=== PATIENT | female | born 1935 | race Caucasian/White ===

== ENCOUNTER 2016-10-31 07:45 | Day surgery (SDC) | payer MEDICARE, BC ==
[2016-10-31] MEDS ORDERED: LACTATED RINGERS 1,000 ML IV ONE (08:13)
[2016-10-31] MEDS ORDERED: MIDAZOLAM 2 MG/2 ML VIAL IVP ONE (09:08)
[2016-10-31] MEDS ORDERED: fentaNYL 100 MCG/2 ML VIAL IVP ONE (09:08)
[2016-10-31] MEDS ORDERED: LIDO GARGLE 30 ML BOTTLE PO ONE (09:24)
[2016-10-31] MEDS ORDERED: BENZOCAINE/TETRACAINE/BUTAMBEN SPRAY 56 GM TOP ONE (09:26)
== END 2016-10-31 07:46 | disposition home or self-care (01) ==
PROC: 0DB48ZX Excision of Esophagogastric Junction, Via Natural or Artificial Opening Endoscopic, Diagnostic (ICD-10-PCS; 2016-10-31)
PROC: 0DB68ZX Excision of Stomach, Via Natural or Artificial Opening Endoscopic, Diagnostic (ICD-10-PCS; principal; 2016-10-31 09:00)
DX: K92.1 Melena (principal); R10.13 Epigastric pain; K25.9 Gastric ulcer, unspecified as acute or chronic, without hemorrhage or perforation; K44.9 Diaphragmatic hernia without obstruction or gangrene; K20.9 Esophagitis, unspecified; I10 Essential (primary) hypertension; E11.9 Type 2 diabetes mellitus without complications; F41.9 Anxiety disorder, unspecified; Z87.891 Personal history of nicotine dependence
CPT/HCPCS: 43239; 87081; A9270; J7120

== ENCOUNTER 2017-06-29 15:32 | Outpatient (CLI) | payer MEDICARE | END 2017-06-29 15:33 | disposition EMS.NT | LOC: EMS 15:32 | PROVIDERS: ATTEND Surgery | DX: R41.82 Altered mental status, unspecified (principal) ==

== ENCOUNTER 2017-07-06 09:13 | Outpatient (CLI) | payer MEDICARE | END 2017-07-06 09:14 | disposition critical access hospital (66) | LOC: EMS 09:13 | PROVIDERS: ATTEND Surgery | DX: S49.92XA Unspecified injury of left shoulder and upper arm, initial encounter (principal); S09.93XA Unspecified injury of face, initial encounter; W18.30XA Fall on same level, unspecified, initial encounter; Y92.099 Unspecified place in other non-institutional residence as the place of occurrence of the external cause | CPT/HCPCS: A0425; A0427 ==

== ENCOUNTER 2017-07-06 09:30 | Inpatient (IN) | payer MEDICARE ==
[2017-07-06] MEDS ORDERED: ONDANSETRON 4 MG/2 ML VIAL ONE (09:39)
[2017-07-06] MEDS ORDERED: SODIUM CHLORIDE 0.9% 1,000 ML IV ONE ×3 (09:48→17:53)
[2017-07-06] MEDS ORDERED: MORPHINE 2 MG/ML SYRINGE IVP STA ×4 (09:48→14:06)
[2017-07-06] MEDS ORDERED: TETANUS/DIPHTHERIA/PERTUSSIS 0.5 ML SYRINGE IM ONE ×2 (09:49→10:23)
[2017-07-06] MEDS ORDERED: ceFAZolin 1 GM in SODIUM CHLORIDE 0.9% MINIBAG 100 ML IV STA (09:49)
--- NOTE | 2017-07-06 09:53 | ED Physician Documentation ---
History of Present Illness - Stated complaint Stated Complaint: GLF - Chief complaint Chief Complaint: Trauma Francis - Additonal information Additional information: hc from pt 82 female lives independent at [facility] found down on floor this AM facial and head injuries, RUE deformity with overlying puncture wound, low BP, but awake and answering questions per EMS she tripped over her O2 cord fell and could not get back up no blood thinners she arrives vomiting dark blackish vomit Review of Systems GI: reports: Nausea, Vomiting Skin: reports: Laceration (s) Musculoskeletal: reports: Extremity pain (and deformity), Joint pain (knees). denies: Neck pain (but HI and distracting injury) Neurologic: reports: Headache, Head injury Endocrine: denies: Easy bruising / bleeding Immunocompromised: denies: Immunocompromised PD PAST MEDICAL HISTORY - Past Medical History Cardiovascular: High cholesterol Respiratory: COPD Endocrine/Autoimmune: Type 2 diabetes GI: GERD, Other : Frequency HEENT: None Psych: None Musculoskeletal: Osteoarthritis, Fatigue, Chronic back pain Derm: None - Past Surgical History Past Surgical History: Yes General: Cholecystectomy, Appendectomy, Colonoscopy, EGD - Present Medications Home Medications: Ambulatory Orders Medication Instructions Recorded Confirmed Naproxen 500 mg PO BID PRN 03/24/14 07/06/17 Losartan/Hydrochlorothiazide 1 tab PO DAILY 10/28/16 07/06/17 [Losartan-Hctz 100-25 mg Tab] Multivitamin [Multivitamins] 1 tab PO DAILY 10/28/16 07/06/17 Simvastatin 20 mg PO DAILY 10/28/16 07/06/17 Acetaminophen with Codeine 1 each PO Q6H PRN 07/06/17 07/06/17 [Acetaminophen-Cod #3 Tablet] Meloxicam [Meloxicam] 15 mg PO DAILY 07/06/17 07/06/17 Nitrofurantoin [Macrobid] 100 mg PO BID 07/06/17 07/06/17 - Allergies Allergies/Adverse Reactions: Allergies Allergy/AdvReac Type Severity Reaction Status Date / Time No Known Drug Allergies Allergy Verified 03/24/14 11:08 - Social History Does the pt smoke?: No Smoking Status: Never smoker Does the pt drink ETOH?: No Does the pt have substance abuse?: No - Immunizations Immunizations are current?: Yes - POLST Patient has POLST: No PD ED PE NORMAL - Vitals Vital signs reviewed: Yes (hypoxic, unable to get a BP) - General General: Alert and oriented X 3 (name and place, confused re day) - HEENT HEENT: No: Atraumatic (sig bruising and swelling to L zoroastrianism and nose and upper lip, no open lacs, dried blood at nares and outside L ear) - Neck Neck: No bony TTP (but clearly at risk and has distracting injuries so collared and will image) - Cardiac Cardiac: RRR - Respiratory Respiratory: No respiratory distress, Other (shallow) - Abdomen Abdomen: Non tender, Other (vomiting black vomit) - Derm Derm: Other (pale) - Extremities Extremities: Other (sig bruising and swelling with intability and deformity to TUE humerus with overlying puncture wound that is not bleeding now, pelvis stable, thanh knees swollen L>R with bruising, too swollen to assess for laxity, L great toenail is avulsed, pulses motor and sens to all 4 ext) Results - Vitals Vitals: Vital Signs - 24 hr 07/06/17 07/06/17 07/06/17 09:32 10:01 10:59 Heart Rate 106 H 101 H 102 H Respiratory 22 16 21 Rate Blood Pressure 124/56 L 124/56 L O2 Saturation 74 L 94 95 07/06/17 07/06/17 07/06/17 11:30 12:10 12:18 Heart Rate 97 93 Respiratory 18 19 Rate Blood Pressure 114/51 L 116/78 O2 Saturation 95 94 98 07/06/17 07/06/17 12:39 13:45 Heart Rate 96 Respiratory 18 Rate Blood Pressure 106/44 L O2 Saturation 100 98 Oxygen O2 Source Oxymizer Oxygen Flow Rate 2 - EKG (time done) 1120 Rate: Rate (enter#) (97) Rhythm: NSR Intervals: Prolonged PA Ischemia: No: Normal ST segments (coving ant leads could be ischemic) Compare to prior EKG: Other (EKG ..16) - Labs Labs: Laboratory Tests 07/06/17 07/06/17 07/06/17 10:35 10:35 10:35 WBC 15.5 H RBC 3.80 L Hgb 11.1 L Hct 33.5 L MCV 88.3 MCH 29.3 MCHC 33.2 RDW 13.4 Plt Count 161 MPV 8.7 Neut # 13.5 H Lymph # 1.0 L Cross # 1.0 Eos # 0.0 Baso # 0.1 Absolute Nucleated RBC 0.02 Nucleated RBC % 0.1 Manual Slide Review Indicated Platelet Morphology NORMAL APPEARANCE PT 12.7 H INR 1.1 APTT 14.2 L Sodium 136 Potassium 3.0 L Chloride 96 L Carbon Dioxide 24 Anion Gap 16.0 H BUN 37 H Creatinine 1.6 H Estimated GFR (MDRD) 31 L Glucose 170 H Calcium 11.5 H Total Bilirubin 1.0 AST 54 H ALT 24 Alkaline Phosphatase 125 H Total Creatine Kinase 752 H CK-MB (CK-2) Troponin I Total Protein 6.2 L Albumin 3.5 Globulin 2.7 Albumin/Globulin Ratio 1.3 Lipase 34 Urine Color Urine Clarity Urine pH Ur Specific [place] Urine Protein Urine Glucose (UA) Urine Ketones Urine Occult Blood Urine Nitrite Urine Bilirubin Urine Urobilinogen Ur Leukocyte Esterase Ur Microscopic Review Urine Culture Comments 07/06/17 07/06/17 07/06/17 10:35 12:00 14:10 WBC RBC Hgb Hct MCV MCH MCHC RDW Plt Count MPV Neut # Lymph # Cross # Eos # Baso # Absolute Nucleated RBC Nucleated RBC % Manual Slide Review Platelet Morphology PT INR APTT Sodium Potassium Chloride Carbon Dioxide Anion Gap BUN Creatinine Estimated GFR (MDRD) Glucose Calcium Total Bilirubin AST ALT Alkaline Phosphatase Total Creatine Kinase CK-MB (CK-2) 75.3 H Troponin I 0.06 0.08 Total Protein Albumin Globulin Albumin/Globulin Ratio Lipase Urine Color DARK YELLOW Urine Clarity CLEAR Urine pH 5.5 Ur Specific [place] >=1.030 H Urine Protein NEGATIVE Urine Glucose (UA) NEGATIVE Urine Ketones TRACE Urine Occult Blood TRACE-LYSE Urine Nitrite NEGATIVE Urine Bilirubin NEGATIVE Urine Urobilinogen 0.2 (NORMAL) Ur Leukocyte Esterase NEGATIVE Ur Microscopic Review NOT INDICATED Urine Culture Comments NOT INDICATED - Rads (name of study) CTH Radiology: See rad report (no ICH, lobulated cystic appearing lesions R hippocampus and T2 hypodense ill def lesions R cerebellum, rec brain MRI with and without, conside metastatic dz) CT facial Radiology: See rad report (multiple lytic lesions C2C3 with mottle appearance and cortical disruption C3 spinous process concern for metastatic, no facial bone fx seen) CTCS Radiology: Other (no c spine fx, multiple lytic and bony destructive lesions in the cervical spine, no pathalogic fx, lytic destruction of the medial aspect of the L clavicle with pathg fx and ant displacement, infiltrative ST mass T1 vertebral body extends into the neural foramina thanh and spinal canal posterior, rec MRI, concern for metastatic dz) CXR Radiology: See rad report (opacity R inf hemithorax may be pleural or pulm based , not typical for acute injury, infection unlikely, ddx includes neoplasm) R humerus Radiology: See rad report (displaced humeral shaft fx likely pathologic - no air near bone, per Dr Wadsworth not an open fx, aggressive lesions in scapula suggests osseous mets) pelvis Radiology: See rad report (no acute) thanh knees Radiology: See rad report (no acute) Procedures - Splint (location) RUE Splint applied by: Tech Type of splint: Other (coaptation splint per ortho) Other: Neurovascular intact, Sling provided. No: Patient tolerated well ( medicated with morphine in order to splint) PD MEDICAL DECISION MAKING - ED course ED course: called PMD office for info PMD not avail but they faxed records no POLST Pmhx AMS, arthritis knees, L shoulder pain, PUD, melena, urinary incont, hyperlipid, DM, HTN, COPD, heart murmur, cataracts, eczema, asthma, cardiomegaly no prior cancer dx no old EKG 82 f found down per EMS believed to have tripped and fallen but not certain extensive bruising to head and face but no ICH or facial neck fx does have a humerus fx (pathalogic) with overlying puncture but per Dr Wadsworth ortho not an open fx, co-aptation splint placed per his instruction also imaging reveals extensive metastatic dz of likely lung origin mild rhabdo renal insuff dehydrated hypoxic req suppl oxygen and may have aspirated, 2st CXR does not show infiltrate but would rpt vomiting bloody emesis - given pepcid - eventually got med list from PD office, appears pt started on mobic 3 days ago, could be related to bloody emesis and EKG suggests acute ischemia but 1st trop neg and pt has many other confounding issues, has been down most of the night, will rpt trop and determine course of action based on results now that know pt does not have a ICH or spine fx etc - 1430 still waiting on rpt trop but able to get an old EKG faxed from clinic pt very uncomfortable and restless, writhing, says hr arm still hurts, gave morphine 2 then 4 still tachy and uncomfortable and upset, seemed more agitated after I told her about possibly having cancer, so alos gave 1 mg ativan whcih calmed pt but also led to low O2 sat (increased oxygen) and hypotension to the 80s (gave fluid) would not rec any more benzos for this pt I updated her daughter [place]von [place] and states her other daughter Susana who lives locally should be here this evening Departure - Departure Disposition: [facility] DC/Xfer Clinical Impression: Renal insufficiency, Hypoxia, Abnormal EKG, Metastatic cancer Fall Qualifiers: Encounter type: initial encounter Qualified Code(s): W19.XXXA - Unspecified fall, initial encounter Head injury Qualifiers: Encounter type: initial encounter Qualified Code(s): S09.90XA - Unspecified injury of head, initial encounter Humerus fracture Qualifiers: Encounter type: initial encounter Humerus Location: shaft Fracture type: closed Fracture morphology: unspecified fracture morphology Laterality: right Qualified Code(s): S42.301A - Unspecified fracture of shaft of humerus, right arm, initial encounter for closed fracture GI bleed Qualifiers: GI bleed type/associated pathology: unspecified gastrointestinal hemorrhage type Qualified Code(s): K92.2 - Gastrointestinal hemorrhage, unspecified Condition: Serious Discharge Date/Time: 07/06/17 16:00
[2017-07-06] MEDS ORDERED: ONDANSETRON 4 MG/2 ML VIAL IVP STA (10:16)
[2017-07-06] MEDS ORDERED: MORPHINE 2 MG/ML SYRINGE ONE ×4 (10:23→14:02)
[2017-07-06] MEDS ORDERED: ceFAZolin 1 GM VIAL ONE (10:23)
[2017-07-06] MEDS ORDERED: SODIUM CHLORIDE FLUSH 0.9% 10 ML SYRINGE IVP ONE (10:23)
[2017-07-06 10:52] LABS: BASOPHILS # (AUTO) 0.1 10^3/uL (0.0-0.1); BASOPHILS % (AUTO) 0.4 %; EOSINOPHILS % (AUTO) 0.1 %; HCT - HEMATOCRIT 33.5 % (37.0-47.0); HGB - HEMOGLOBIN 11.1 g/dL (12.0-16.0); LYMPHOCYTES % (AUTO) 6.4 %; MEAN CORPUSCULAR HEMOGLOBIN 29.3 pg (27.0-31.0); MEAN CORPUSCULAR HGB CONC 33.2 g/dL (32.0-36.0); MEAN CORPUSCULAR VOLUME 88.3 fL (81.0-99.0); MEAN PLATELET VOLUME 8.7 fL (7.9-10.8); MONOCYTES % (AUTO) 6.5 %; NEUTROPHILS # (AUTO) 13.5 10^3/uL (1.5-6.6); NEUTROPHILS % (AUTO) 86.6 %; NUCLEATED RED BLOOD CELLS AUTO 0.1 /100WBC; RED CELL DISTRIBUTION WIDTH 13.4 % (12.0-15.0); UNCORRECTED WHITE BLOOD COUNT 15.5 x10^3/uL; WHITE BLOOD COUNT 15.5 x10^3/uL (4.8-10.8)
[2017-07-06 10:53] LABS: INR 1.1 (0.8-1.2); PT - PROTHROMBIN TIME 12.7 secs (9.9-12.6)
[2017-07-06 11:00] LABS: PARTIAL THROMBOPLASTIN TIME 14.2 secs (24.9-33.3)
[2017-07-06 11:03] LABS: TROPONIN I 0.06 ng/mL (<0.49)
[2017-07-06 11:05] LABS: CREATINE KINASE MB 75.3 ng/mL (0.6-6.3)
--- NOTE | 2017-07-06 11:10 | CT Report ---
EXAM: CT HEAD EXAM DATE: 07/06/2017 10:51 AM. CLINICAL HISTORY: Fall PLUNKETT. COMPARISON: None. TECHNIQUE: Multiaxial CT images were obtained from the foramen magnum to the vertex. IV contrast: Non e. Reformats: Coronal. In accordance with CT protocol optimization, one or more of the following dose reduction techniques w ere utilized for this exam: automated exposure control, adjustment of mA and/or KV based on patient s ize, or use of iterative reconstructive technique. FINDINGS: Parenchyma: There is a lobulated cystic structure measuring 2.8 x 2.9 cm in the right hippocampus. No intracranial hemorrhage or midline shift. Hypoattenuating ill-defined structures in the right cerebe llum measuring 4.0 x 2.0 anteriorly and 1.8 x 1.2 cm posteriorly. Extraaxial Spaces: Normal for age. No subdural or epidural collections identified. Ventricles: Normal in size and position. Sinuses: Imaged paranasal sinuses, orbits, and mastoids show no significant abnormality. Bones: No evidence of fracture or calvarial defect. Other: None. IMPRESSION: 1. No intracranial hemorrhage or midline shift. 2. There is a lobulated cystic-appearing lesion in the right hippocampus and T2 hypodense ill-defined lesions in the right cerebellum, as described above. These are incompletely assessed on this examina tion and a brain MRI with and without contrast should be considered for further evaluation. Metastati c disease cannot be excluded. [facility] Referring Provider Line: [phone] SITE ID: [id number]
[2017-07-06 11:12] LABS: PLATELET MORPHOLOGY NORMAL APPEARANCE (NORMAL)
[2017-07-06 11:24] LABS: CALCIUM 11.5 mg/dL (8.5-10.3)
[2017-07-06 11:25] LABS: TOTAL PROTEIN 6.2 g/dL (6.7-8.2)
--- NOTE | 2017-07-06 11:28 | CT Report ---
EXAM: CT CERVICAL SPINE WITHOUT CONTRAST DATE: 07/06/2017 10:51 AM HISTORY: Fall HI distracting injuries cant clear. COMPARISONS: Head CT dated 07/06/2017. TECHNIQUE: Thin-section axial images were acquired of the cervical spine without contrast. Post-proce ssing: Coronal and sagittal reformats. Other: None. In accordance with CT protocol optimization, one or more of the following dose reduction techniques w ere utilized for this exam: automated exposure control, adjustment of mA and/or KV based on patient s ize, or use of iterative reconstructive technique. FINDINGS: Alignment: The patient's head is rotated to the right in relation to the cervical spine. No listhesis in the AP dimension. Bones: Multiple lytic lesions with bony destruction throughout the cervical spine including a mottled appearance of the C7 and T1 vertebral bodies extending into the spinous process at T1. Mottled appea nikki of the T2 and T3 vertebral bodies. There is lytic destruction of the medial aspect of the left clavicle with past neurologic fracture and anterior displacement of the lateral fracture fragment. Interspace Levels/Facets: C1-C2: Unremarkable. C2-C3: Unremarkable. C3-C4: Unremarkable. C4-C5: Unremarkable. C5-C6: Severe neural foraminal narrowing on the right. C6-C7: Unremarkable. C7-T1: Unremarkable. Musculature: Normal. No fatty atrophy. Other: The paravertebral and prevertebral soft tissues are normal. The lung apices are clear. IMPRESSION: 1. No cervical spine fracture or listhesis. 2. Multiple lytic and bony destructive lesions in the cervical spine most significant at C7 and T1. N o pathologic fracture of the cervical spine. There is lytic destruction of the medial aspect of the l eft clavicle with pathologic fracture and anterior displacement of the lateral fracture fragment by o ne shaft width. Infiltrative soft tissue mass in the T1 vertebral body extends into the neural forami na bilaterally and spinal canal posteriorly. A cervical spine MRI may be of clinical benefit to furth er characterize this finding. Findings are concerning for metastatic disease. 3. Please see separate head CT report from today for additional findings in the brain. [facility] Referring Provider Line: [phone] SITE ID: [id number]
--- NOTE | 2017-07-06 11:31 | CT Preliminary Report ---
Exam: CT Facial Bones W/O IMPRESSION: 1. Multiple lytic lesions in the C2 and C3 vertebral bodies with mottled appearance and cortical disr uption of the C3 spinous process are concerning for metastatic disease. 2. No facial bone fracture or facial bone lesions identified. 3. Please see separate head CT report for intracranial findings. [facility] SITE ID: [id number]
--- NOTE | 2017-07-06 11:34 | CT Report ---
EXAM: CT MAXILLOFACIAL WITHOUT CONTRAST EXAM DATE: 07/06/2017 10:51 AM. CLINICAL HISTORY: Fall facial injuries. COMPARISONS: Head CT dated 07/06/2017. TECHNIQUE: Thin-section axial images were acquired of the face without contrast. Post-processing: Cor onal and sagittal reformats. Other: None. In accordance with CT protocol optimization, one or more of the following dose reduction techniques w ere utilized for this exam: automated exposure control, adjustment of mA and/or KV based on patient s ize, or use of iterative reconstructive technique. FINDINGS: Bones: Multiple lytic lesions in the C2 and C3 vertebral bodies with mottled appearance with cortical disruption of the C3 spinous process. No facial bone lesion is identified. No fractures. Temporomandibular Joints: The temporomandibular joints are symmetric and normally located. Sinuses: Mild mucosal thickening in the maxillary sinuses. Other: Patient's head is rotated to the right relation to the cervical spine. IMPRESSION: 1. Multiple lytic lesions in the C2 and C3 vertebral bodies with mottled appearance and cortical disr uption of the C3 spinous process are concerning for metastatic disease. 2. No facial bone fracture or facial bone lesions identified. 3. Please see separate head CT report for intracranial findings. [facility] Referring Provider Line: [phone] SITE ID: [id number]
--- NOTE | 2017-07-06 12:02 | XRAY Preliminary Report ---
Exam: XR Humerus RT IMPRESSION: 1. Displaced humeral shaft fracture, likely a pathologic fracture. 2. There is an apparent aggressive lesion in the scapula. Constellation of findings suggests osseous metastases. [facility] SITE ID: [id number]
[2017-07-06 12:03] LABS: ALBUMIN/GLOBULIN RATIO 1.3 (1.0-2.2); CREATININE 1.6 mg/dL (0.4-1.0)
--- NOTE | 2017-07-06 12:05 | XRAY Report ---
EXAM: RIGHT HUMERUS RADIOGRAPHY EXAM DATE: 07/06/2017 11:47 AM. CLINICAL HISTORY: Deformity s/p fall. Patient found down. COMPARISON: None. TECHNIQUE: 2 views. FINDINGS: Bones: There is suboptimal lateral view secondary to technical artifact. Midshaft fracture of the hum erus with approximately one half shaft width posterior displacement and mild angulation. There is an apparent permeative lesion at the fracture site. Apparent periosteal reaction lateral border of the s capula with possible underlying lucent lesion. Joints: No evidence of dislocation. Soft Tissues: Diffuse soft tissue swelling. IMPRESSION: 1. Displaced humeral shaft fracture, likely a pathologic fracture. 2. There is an apparent aggressive lesion in the scapula. Constellation of findings suggests osseous metastases. [facility] Referring Provider Line: [phone] SITE ID: [id number]
--- NOTE | 2017-07-06 12:05 | XRAY Preliminary Report ---
Exam: XR Pelvis 1 View IMPRESSION: No acute osseous abnormality. [facility] SITE ID: [id number]
--- NOTE | 2017-07-06 12:07 | XRAY Report ---
EXAM: PELVIS RADIOGRAPHY EXAM DATE: 07/06/2017 11:47 AM. CLINICAL HISTORY: Fall. Found down. Unable to obtain additional history. Distracting injuries. COMPARISON: None. TECHNIQUE: 1 view. FINDINGS: Bones: No fracture or focal osseous lesion. Joints: Degenerative change. No dislocation. Soft Tissues: No significant abnormality. IMPRESSION: No acute osseous abnormality. [facility] Referring Provider Line: [phone] SITE ID: [id number]
[2017-07-06 12:14] LABS: PH,URINE 5.5 PH (5.0-7.5)
[2017-07-06 12:16] LABS: UA CHARGE (STRIP ONLY) YES; UR CULTURE IF IND NOT INDICATED
[2017-07-06 12:17] LABS: BILIRUBIN,URINE NEGATIVE (NEGATIVE)
--- NOTE | 2017-07-06 12:21 | XRAY Preliminary Report ---
Exam: XR Knee 2 View BILAT IMPRESSION: No acute osseous abnormality in the bilateral knees. [facility] SITE ID: [id number]
--- NOTE | 2017-07-06 12:21 | XRAY Report ---
EXAM: CHEST RADIOGRAPHY EXAM DATE: 07/06/2017 11:47 AM. CLINICAL HISTORY: Fall. Head injury. May have aspirated. Unable to obtain additional history. COMPARISON: None. TECHNIQUE: 1 supine view. FINDINGS: Lungs/Pleura: 9 x 1 cm linear density along the lateral inferior right hemithorax with associated air space opacity. No focal left consolidation. No large pleural effusion or pneumothorax demonstrated on this single supine view. Mediastinum: Mild enlargement of the cardiac silhouette and mildly tortuous, atherosclerotic thoracic aorta. Other: Apparent 2.4 cm permeative lesion with adjacent periosteal reaction in the lateral right scapu la, better seen on concurrent shoulder radiography. IMPRESSION: Opacity in the right inferior hemithorax may be pleural or pulmonary based. The appearanc e is atypical for an acute injury (such as hemothorax/contusion) however acute injury is not excluded . Differential includes neoplasm with infection felt to be less likely. Consider CT for further evalu ation if clinically indicated. [facility] Referring Provider Line: [phone] SITE ID: [id number]
--- NOTE | 2017-07-06 12:23 | XRAY Report ---
EXAMS: 1. Right Knee Radiography 2. Left Knee Radiography EXAM DATE:07/06/2017 11:47 AM. CLINICAL HISTORY:Fall; pain and swelling. COMPARISON: None. TECHNIQUE: 2 views each. FINDINGS: Right Knee: Bones: No fracture. Joints: No effusion or dislocation. Moderate degenerative change. Soft Tissues: No focal abnormality. Left Knee: Bones: No fracture. Joints: No effusion or dislocation. Mild degenerative change. Soft Tissues: No focal abnormality. IMPRESSION: No acute osseous abnormality in the bilateral knees. [facility] Referring Provider Line: [phone] SITE ID: [id number]
[2017-07-06] MEDS ORDERED: FAMOTIDINE 20 MG/50 ML 50 ML IV ONE ×2 (13:52→14:48)
[2017-07-06] MEDS ORDERED: LORazepam 2 MG/ML SYRINGE IVP STA (14:29)
[2017-07-06] MEDS ORDERED: LORazepam 2 MG/ML SYRINGE ONE (14:47)
[2017-07-06] MEDS ORDERED: A & D OINTMENT 5 GM PACKET TOP ONE (16:17)
[2017-07-06] MEDS: SODIUM CHLORIDE 0.9% 1,000 ML IV ONE ×2 (16:54→20:04)
[2017-07-06] MEDS ORDERED: VANCOMYCIN PER PHARMACY 1 GM in SODIUM CHLORIDE 0.9% 250 ML IV SCH (17:00)
[2017-07-06] MEDS: PIPERACILLIN/TAZOBACTAM 3.375 GM in SODIUM CHLORIDE 0.9% MINIBAG 100 ML IV SCH ×2 (17:01→22:56)
[2017-07-06] MEDS: VANCOMYCIN INJ 1 GM in SODIUM CHLORIDE 0.9% 250 ML IV SCH (17:56)
--- NOTE | 2017-07-06 18:15 | HISTORY & PHYSICAL EXAMINATION ---
Chief Complaint - Chief Complaint Chief Complaint: Altered mental status History of Present Illness - Admitted From Admitted From:: Emergency department - History Obtained From Records Reviewed: yes History obtained from: Patients daughter and medical records Exam Limitations: Patient unable to provide any history secondary to being unresponsive - History of Present Illness HPI Comment/Other: Patient is an 82-year-old female with a past medical history significant for COPD on home oxygen, hypertension, hyperlipidemia, osteoarthritis and diabetes diet controlled who presented to the emergency department with altered mental status. Patient is unable to provide any history secondary to being unresponsive. The history was provided by the patient's daughter. The patient' s daughter states that the patient over the last several weeks has been having increased forgetfulness and cognitive decline. She states that the patient had an appointment with her primary care physician 1 week ago during which she had a steroid injection of her knee but the nurses there found her to be confused and not her normal self therefore they had requested that the patient go to the emergency department. The patient however refused and they had to call the patient's daughter who came to the doctor's office but could not convince the patient to come in to the hospital. The patient's daughter states that the patient has been forgetting went to take her pills she has been sleeping during the day and then getting up and thinking it is the next day. The patient went to a doctor's appointment earlier this week for another knee injection and after getting the knee injection she returned in the afternoon thinking that she had not gone to the appointment. The patient's daughter states that the patient was diagnosed with a urinary tract infection last week and started on antibiotics and she thought that maybe her mom's for forgetfulness was secondary to this infection. The daughter has also noted that the patient has become increasingly weak. She states that her mom uses a walker at home but recently has barely been able to stand up and move with her walker. The daughter states that she did see her mother last night and at that time again she noted that she was very forgetful she had not taken her pills correctly and she talked to her mom about the need for increased care. The patient was brought into the emergency department today when she was found on her floor at her cottage at [facility] in [place]. The patient was found on the floor with bruises over her face, deformity of her right arm and scrapes and bruises over her knees and her feet. It appeared that the patient had tried to crawl and get up after having suffered a fall but was unable to. When EMS arrived the patient was very weak and they could not get her up. In route to the emergency department the patient had several episodes of emesis. The patient was in and out of consciousness during her stay in the emergency department and at times did respond to questions however by the time I went to admit the patient the patient was completely unresponsive and barely responsive to tactile stimuli. I was unable to obtain any review of system from the patient. On presentation to the emergency department the patient was vomiting and very lethargic. It appeared that she was not protecting her airway and may have aspirated at that time. The patient's vital signs on presentation showed that she was tachypneic and very hypoxic on room air saturating at only 74%. The patient was tachycardic but was afebrile. The patient's lab work revealed a leukocytosis of 15.5 and she appeared to be significantly dehydrated as her creatinine was elevated at 1.6 her potassium was low at 3.0 and her calcium was elevated at 11.5. The patient's initial troponin was 0.06 subsequent troponins were 0.08 and 0.09. The patient's EKG initially was concerning however when an EKG was obtained from her primary care physician's office it appeared to be unchanged from previous. The patient's lactate was 1.3. The patient's UA was negative for infection. The patient's chest x-ray did reveal an opacity in the right inferior hemothorax which was concerning for possible neoplasm with infection felt to be less likely. An x-ray of the patient's right arm revealed a displaced humeral shaft fracture which was likely pathological. The patient was also found to have an aggressive lesion in the scapula that appeared to be a osseous metastasis. A CT of the patient's cervical spine revealed multiple lytic bony destructive lesions in the cervical spine concerning for metastatic disease. CT of the patient's head revealed a lobulated cystic appearing lesion in the right hippocampus and T2 hypodense ill-defined lesion in the right cerebellum that were also concerning for metastatic disease. The patient had some bruising over the left eye and facial area she underwent a CT of her maxillofacial area which showed multiple lytic lesions in the C2 and C3 vertebral bodies mottled appearance and cortical disruption of the C3 spinous process which were also concerning for metastatic disease. She did not have any facial bone fracture or facial bone lesions. During her stay in the emergency department the patient had a drop in her blood pressure down to 60 systolic and became increasingly hypoxic requiring a nonrebreather at 100%. The patient was admitted to the intensive care unit with acute respiratory failure secondary to hypoxia and acute encephalopathy. History - Past Medical History Cardiovascular: reports: Hypertension, High cholesterol Respiratory: reports: COPD (On home O2) Endocrine/Autoimmune: reports: Type 2 diabetes GI: reports: GERD, Other : reports: Frequency HEENT: reports: None Psych: reports: None Musculoskeletal: reports: Osteoarthritis, Fatigue, Chronic back pain Derm: reports: None MRSA Hx?: No - Past Surgical History General: reports: Cholecystectomy, Appendectomy, Colonoscopy, EGD - Family & Social History Family History: Mother: (Dad of cancer and mom of coronary disease), Father: Family History Comment/Other: She has 3 children all of whom are healthy Living arrangement: At home Living Situation: Alone Social History Notes: The patient was living independently at [facility]. She is originally from [facility]. She has been living on [facility] since [facility]. She is her a few years ago. The patient has 3 children 2 daughters 1 of whom is her [employer] and lives in [place] her name is Ivon. The patient was a heavy smoker for years quit many years ago but previously was a chain smoker. She drinks alcohol socially and denies any illicit drug use. - Substance History Use: Uses substance without health or social issues: NONE Abuse: Recurrent use of substance despite neg consequences: NONE Dependence: Experiences withdrawal or developed tolerances: NONE - POLST Patient has POLST: Yes POLST Status: DNR Meds/Allgy - Home Medications Home Medications: Ambulatory Orders Medication Instructions Recorded Confirmed Naproxen 500 mg PO BID PRN 03/24/14 07/06/17 Losartan/Hydrochlorothiazide 1 tab PO DAILY 10/28/16 07/06/17 [Losartan-Hctz 100-25 mg Tab] Multivitamin [Multivitamins] 1 tab PO DAILY 10/28/16 07/06/17 Simvastatin 20 mg PO DAILY 10/28/16 07/06/17 Acetaminophen with Codeine 1 each PO Q6H PRN 07/06/17 07/06/17 [Acetaminophen-Cod #3 Tablet] Meloxicam [Meloxicam] 15 mg PO DAILY 07/06/17 07/06/17 Nitrofurantoin [Macrobid] 100 mg PO BID 07/06/17 07/06/17 - Allergies Allergies/Adverse Reactions: Allergies Allergy/AdvReac Type Severity Reaction Status Date / Time No Known Drug Allergies Allergy Verified 03/24/14 11:08 Review of Systems - Other Findings Other Findings: Unable to obtain review of systems secondary to patient being unresponsive. Exam - Vital Signs Vital Signs: Vital Signs x48h Temp Pulse Pulse Resp BP BP Pulse Ox 07/06/17 16:30 117 H 18 70/39 L 86 L 07/06/17 16:15 117 H 20 81/40 L 89 L 07/06/17 16:00 98 C H 117 H 18 83/37 L 90 L 07/06/17 15:23 105 H 17 100/41 L 99 07/06/17 14:55 106 H 20 85/48 L 70 L - Physical Exam General Appearance: positive: Severe distress (Agonal breathing, very shallow, unresponsive to tactile stimuli.) Eyes Bilateral: positive: Normal inspection, PERRL, EOMI, No lid inflammation, Conjunctivae nml, No scleral icterus ENT: positive: Pharynx nml, Dry mucous membranes, Other (Patient with bruising over the left eye from trauma, lips swollen). negative: Purulent nasal drainage , Pharyngeal erythema, Oral lesions Neck: positive: Nml inspection, Thyroid nml, No JVD, Trachea midline. negative : Thyromegaly, Lymphadenopathy (R), Lymphadenopathy (L), Stiff neck, Carotid bruit, Tracheal deviation Respiratory: positive: Chest non-tender, Wheezes (Bilateral, diffuse), Rales, Rhonchi (Bilateral, coarse), Other (agonal shallow breathing) Cardiovascular: positive: No murmur, No gallop, Tachycardia Peripheral Pulses: positive: 2+ Abdomen: positive: Non-tender, No organomegaly, Nml bowel sounds, No distention. negative: Guarding, Rebound, Hepatomegaly Back: positive: Nml inspection. negative: CVA tenderness (R), CVA tenderness (L ) Skin: positive: Dry, Other (Bruising over her left eye and abrasions on her bilateral knees. Patients toes are bloody secondary to trauma.). negative: Cyanosis Extremities: positive: Pedal edema, Other (Bilateral knees swollen, patient right arm in splint after fracture) Neurologic/Psychiatric: positive: Other (Comatosed) Conclusion/Plan - Problem List (1) Acute respiratory failure with hypoxia Conclusion/Plan: Patient presented with O2 sat of 74% and had waxing and waning respiratory status in ER but then eventually became comatosed and required a non rebreather at 100% with labored breathing and agonal breathing. Cause of respiratory failure appears to likely be aspiration pneumonia in conjunction to a COPD exacerbation and possible respiratory depression from opioids in the ER Plan: Patient DNR/DNI will not go further than non rebreather mask Supplemental O2 Duonebs Broad spectrum Abx for pneumonia Solumedrol Monitor closely (2) Acute encephalopathy Conclusion/Plan: Likely secondary to severe infection, hypotension, hypoxia and dehydration but could also be secondary to concussion after fall and metastatic cancer with mets to the brain Patient is comatosed and not responding to tactile stimuli Plan: Treat pneumonia and acute respiratory failure Will consider MRI for further evaluation of the brain mets if patient stabilizes IVFs for hydration Electrolyte replacement Treatment of hypotension Monitor neuro status closely (3) Aspiration pneumonia Conclusion/Plan: Patient presented with acute respiratory failure with hypoxia and was having active emesis while not protecting her airway Patient likely has an aspiration pneumonia that is causing a COPD exacerbation and may even have had pneumonia prior to aspiration On NRB mask 100% Plan: IV Vancomycin and Zosyn NRB Mask but no intubation Supplemental O2 Duonebs Steroids Qualifiers: Laterality: right (4) COPD exacerbation Conclusion/Plan: Patient presented with acute respiratory failure with hypoxia with O2 sat down to 74% at presentation requiring NRB mask at 100% to maintain sats Patient found to have likely aspiration pneumonia with shallow breathing and agonal breaths On exam has wheezing and rhonci Likely has COPD exacerbation secondary to pneumonia Plan: Duonebs IV steroids Supplemental O2 IV abx No intubation (5) Acute kidney injury Conclusion/Plan: Patient presented with QUINCY with farm mortgage agent of 1.6 this is likely secondary to dehydration from infection and poor PO intake Plan: IVFs Maintain MAP of 65 (6) Hypokalemia Conclusion/Plan: K is 3.0 likely secondary to emesis and dehydration Replace K Monitor K (7) Hypercalcemia Conclusion/Plan: LIkely secondary to metastatic ca with mets to bones Give IVFs Monitor Ca Check PTH and ionized Ca (8) Abnormal LFTs Conclusion/Plan: Mildly elevated likely secondary to hypotension Monitor daily if worsening then consider imaging of abd (9) Humerus fracture Conclusion/Plan: Patient has displaced humeral shaft fx likely pathologic Ortho saw image in ER and recommended splinting Patient with splint Pain control Monitor Qualifiers: Encounter type: initial encounter Humerus Location: shaft Fracture type: closed Fracture morphology: unspecified fracture morphology Laterality: right Qualified Code(s): S42.301A - Unspecified fracture of shaft of humerus, right arm, initial encounter for closed fracture (10) Metastatic cancer Conclusion/Plan: New diagnosis with spread to brain, bones and lungs Unknown primary Family made aware DPOA is daughter and she says patient wants to be DNR/DNI and no heroic measures (11) Hypotension Conclusion/Plan: Likely secondary to infection and dehydration Continue to give IVFs Family does not want heroic measures such as pressors - Lab Results Lab results reviewed: Yes Fish Bones: 07/06/17 10:35 07/06/17 10:35 Other Lab Results: Laboratory Results WBC 15.5 x10^3/uL (4.8-10.8) H 07/06/17 10:35 RBC 3.80 10^6/uL (4.20-5.40) L 07/06/17 10:35 Hgb 11.1 g/dL (12.0-16.0) L 07/06/17 10:35 Hct 33.5 % (37.0-47.0) L 07/06/17 10:35 MCV 88.3 fL (81.0-99.0) 07/06/17 10:35 MCH 29.3 pg (27.0-31.0) 07/06/17 10:35 MCHC 33.2 g/dL (32.0-36.0) 07/06/17 10:35 RDW 13.4 % (12.0-15.0) 07/06/17 10:35 Plt Count 161 10^3/uL (130-450) 07/06/17 10:35 MPV 8.7 fL (7.9-10.8) 07/06/17 10:35 Neut # 13.5 10^3/uL (1.5-6.6) H 07/06/17 10:35 Lymph # 1.0 10^3/uL (1.5-3.5) L 07/06/17 10:35 Bryan # 1.0 10^3/uL (0.0-1.0) 07/06/17 10:35 Eos # 0.0 10^3/uL (0.0-0.7) 07/06/17 10:35 Baso # 0.1 10^3/uL (0.0-0.1) 07/06/17 10:35 Absolute Nucleated RBC 0.02 x10^3/uL 07/06/17 10:35 Nucleated RBC % 0.1 /100WBC 07/06/17 10:35 Manual Slide Review Indicated 07/06/17 10:35 Platelet Morphology NORMAL APPEARANCE (NORMAL) 07/06/17 10:35 PT 12.7 secs (9.9-12.6) H 07/06/17 10:35 INR 1.1 (0.8-1.2) 07/06/17 10:35 APTT 14.2 secs (24.9-33.3) L 07/06/17 10:35 Sodium 136 mmol/L (135-145) 07/06/17 10:35 Potassium 3.0 mmol/L (3.5-5.0) L 07/06/17 10:35 Chloride 96 mmol/L (101-111) L 07/06/17 10:35 Carbon Dioxide 24 mmol/L (21-32) 07/06/17 10:35 Anion Gap 16.0 (6-13) H 07/06/17 10:35 BUN 37 mg/dL (6-20) H 07/06/17 10:35 Creatinine 1.6 mg/dL (0.4-1.0) H 07/06/17 10:35 Estimated GFR (MDRD) 31 (>89) L 07/06/17 10:35 Glucose 170 mg/dL (70-100) H 07/06/17 10:35 Lactic Acid 1.3 mmol/L (0.5-2.2) 07/06/17 17:30 Calcium 11.5 mg/dL (8.5-10.3) H 07/06/17 10:35 Total Bilirubin 1.0 mg/dL (0.2-1.0) 07/06/17 10:35 AST 54 IU/L (10-42) H 07/06/17 10:35 ALT 24 IU/L (10-60) 07/06/17 10:35 Alkaline Phosphatase 125 IU/L (42-121) H 07/06/17 10:35 Total Creatine Kinase 752 IU/L (22-269) H 07/06/17 10:35 CK-MB (CK-2) 75.3 ng/mL (0.6-6.3) H 07/06/17 10:35 Troponin I 0.09 ng/mL (<0.49) 07/06/17 17:30 Total Protein 6.2 g/dL (6.7-8.2) L 07/06/17 10:35 Albumin 3.5 g/dL (3.2-5.5) 07/06/17 10:35 Globulin 2.7 g/dL (2.1-4.2) 07/06/17 10:35 Albumin/Globulin Ratio 1.3 (1.0-2.2) 07/06/17 10:35 Lipase 34 U/L (22-51) 07/06/17 10:35 Urine Color DARK YELLOW 07/06/17 12:00 Urine Clarity CLEAR (CLEAR) 07/06/17 12:00 Urine pH 5.5 PH (5.0-7.5) 07/06/17 12:00 Ur Specific Hutchinson >=1.030 (1.002-1.030) H 07/06/17 12:00 Urine Protein NEGATIVE mg/dL (NEGATIVE) 07/06/17 12:00 Urine Glucose (UA) NEGATIVE mg/dL (NEGATIVE) 07/06/17 12:00 Urine Ketones TRACE mg/dL (NEGATIVE) 07/06/17 12:00 Urine Occult Blood TRACE-LYSE (NEGATIVE) 07/06/17 12:00 Urine Nitrite NEGATIVE (NEGATIVE) 07/06/17 12:00 Urine Bilirubin NEGATIVE (NEGATIVE) 07/06/17 12:00 Urine Urobilinogen 0.2 (NORMAL) E.U./dL (NORMAL) 07/06/17 12:00 Ur Leukocyte Esterase NEGATIVE (NEGATIVE) 07/06/17 12:00 Ur Microscopic Review NOT INDICATED 07/06/17 12:00 Urine Culture Comments NOT INDICATED 07/06/17 12:00 - Diagnostic Imaging Results Diagnostic Imaging Results: positive: Final report reviewed - EKG Results EKG Interpreted Independently: Yes EKG Comparison: Unchanged from prior EKG Issues/Core Measures - Anticipated LOS Anticipated Stay Length: 2 or more midnights - DVT/VTE - Prophylaxis VTE/DVT Device ordered at admit?: Yes
[2017-07-06] MEDS ORDERED: IPRATROPIUM/ALBUTEROL 3 ML NEB INH PRN (18:26)
[2017-07-06] MEDS ORDERED: HYDROmorphone 1 MG/ML AMP IVP PRN (18:45)
[2017-07-06] MEDS ORDERED: IPRATROPIUM/ALBUTEROL 3 ML NEB INH SCH (19:00)
[2017-07-06] MEDS: methylPREDNISolone SUCCINATE 125 MG/2 ML VIAL IVP SCH ×2 (20:10→22:50)
[2017-07-06] MEDS ORDERED: SODIUM CHLORIDE FLUSH 0.9% 10 ML SYRINGE IVP PRN (20:18)
--- NOTE | 2017-07-06 20:29 | ANESTHESIA PROCEDURE NOTE ---
Anesth Central Line Template - Central Line Central Line Preparation: Consent Obtained (From Daughter), Time out completed, Sterile prep and drape. No: Unable to obtain consent, Ultrasound used Central line location: Left Subclavian (Right Arm Fractured) Central line type: Triple lumen Central line aftercare: Chlorhexidine disc placed, Secured, Placement confirmed (Lungs Fully Expanded Catheter path to SVC correct Pulled back 4 CM after xray) , No pneumothorax, No complications, Pt tolerated well Critical Care Note - Critical Care Note Total Time (mins): 66 Comments: Called by hospitalist requesting central access for a 89 year old patient who fell today at her correction and has no available access. She appears on visual inspection to have suffered multiple injuries. She has a Right arm Fracture, facial contusions ,and is not mentally intact. She is spontaneously breathing, however she does not respond to pain. 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 Her daughter reports an acute deterioration in memory and time confusion. Because of painful knees she does not ambulate. She is a no code. Left Subclavian line placed with Selinger Technique. A brief run of Vtach was observed and ceased with catheter withdrawal. Post procedure xray shows fully inflated lungs, an appropriate course for the catheter and the tip lying in the proximal inferior vena cave. The catheter is pulled back 4 cm and order to allow use placed.
[2017-07-06] MEDS: SODIUM CHLORIDE 0.9% 1,000 ML IV SCH (20:40)
--- NOTE | 2017-07-06 21:02 | XRAY Preliminary Report ---
Exam: XR Chest 1 View IMPRESSION: Interval placement of left subclavian central line extending to the RA, with no pneumotho rax or other interval change. [facility] SITE ID: [id number]
--- NOTE | 2017-07-06 21:05 | XRAY Report ---
EXAM: CHEST RADIOGRAPHY EXAM DATE: 07/06/2017 08:07 PM. CLINICAL HISTORY: Line placement. COMPARISON: Today at 1118. TECHNIQUE: 1 view. FINDINGS: Lungs/Pleura: Stable pleural and parenchymal scarring at the right base with pleural calcification. S table left base atelectasis/scarring. Upper lungs clear. No sign of pneumothorax. Mediastinum: Large heart. Other: Left subclavian line to the RA. Destructive bone lesions of the lateral right scapula and late ral left clavicle noted. IMPRESSION: Interval placement of left subclavian central line extending to the RA, with no pneumotho rax or other interval change. [facility] Referring Provider Line: [phone] SITE ID: [id number]
[2017-07-06] MEDS: SODIUM CHLORIDE FLUSH 0.9% 10 ML SYRINGE IVP SCH (21:11)
[2017-07-06] MEDS: SODIUM CHLORIDE FLUSH 0.9% 10 ML SYRINGE IVP PRN ×2 (21:11→23:52)
[2017-07-06] MEDS: POTASSIUM CHLOR 20 MEQ/100 ML 20 MEQ/100 ML BAG IV SCH ×2 (21:50→22:51)
[2017-07-06] MEDS ORDERED: SODIUM CHLORIDE 0.9% 500 ML IV ONE (22:23)
[2017-07-07 04:58] LABS: EOSINOPHILS % (AUTO) 0.1 %; MEAN PLATELET VOLUME 8.4 fL (7.9-10.8); MONOCYTES % (AUTO) 3.7 %; RED BLOOD COUNT 3.63 10^6/uL (4.20-5.40)
[2017-07-07 05:04] LABS: BASOPHILS % (AUTO) 0.5 %; HCT - HEMATOCRIT 33.9 % (37.0-47.0); HGB - HEMOGLOBIN 10.7 g/dL (12.0-16.0); LYMPHOCYTES % (AUTO) 3.8 %; MEAN CORPUSCULAR HEMOGLOBIN 29.5 pg (27.0-31.0); MEAN CORPUSCULAR HGB CONC 31.5 g/dL (32.0-36.0); MEAN CORPUSCULAR VOLUME 93.5 fL (81.0-99.0); NEUTROPHILS % (AUTO) 91.9 %; RED CELL DISTRIBUTION WIDTH 14.1 % (12.0-15.0); UNCORRECTED WHITE BLOOD COUNT 24.3 x10^3/uL; WHITE BLOOD COUNT 24.3 x10^3/uL (4.8-10.8)
[2017-07-07 05:12] LABS: ALBUMIN/GLOBULIN RATIO 1.2 (1.0-2.2); BILIRUBIN,TOTAL 0.5 mg/dL (0.2-1.0); BUN - BLOOD UREA NITROGEN 47 mg/dL (6-20); CALCIUM 9.4 mg/dL (8.5-10.3); CARBON DIOXIDE - CO2 30 mmol/L (21-32); CHLORIDE 102 mmol/L (101-111); CREATININE 2.4 mg/dL (0.4-1.0); GFR - MDRD 19 (>89); GLUCOSE 191 mg/dL (70-100); MAGNESIUM 1.3 mg/dL (1.7-2.8); PHOSPHORUS 9.4 mg/dL (2.5-4.6); POTASSIUM 5.3 mmol/L (3.5-5.0); SODIUM 141 mmol/L (135-145); TOTAL PROTEIN 6.3 g/dL (6.7-8.2)
[2017-07-07] MEDS: PIPERACILLIN/TAZOBACTAM 3.375 GM in SODIUM CHLORIDE 0.9% MINIBAG 100 ML IV SCH ×2 (05:24→10:40)
[2017-07-07] MEDS: methylPREDNISolone SUCCINATE 125 MG/2 ML VIAL IVP SCH (05:26)
[2017-07-07] MEDS: SODIUM CHLORIDE FLUSH 0.9% 10 ML SYRINGE IVP SCH ×2 (05:27→13:05)
[2017-07-07] MEDS: VANCOMYCIN INJ 1 GM in SODIUM CHLORIDE 0.9% 250 ML IV SCH (05:28)
[2017-07-07 05:40] LABS: BAND NEUTROPHILS % (MANUAL) 8 %; LYMPHOCYTES % (MANUAL) 8 %; NEUTROPHILS % (MANUAL) 80 %; TOTAL CELLS COUNTED 100
[2017-07-07 05:41] LABS: NP AUTO DIFFERENTIAL? YES; NP MAN DIFFERENTIAL? NO; PLATELET ESTIMATE, MANUAL NORMAL (130-450,000) (NORMAL)
[2017-07-07] MEDS: MAGNESIUM SULFATE 2 GRAM 2 GM/50 ML BAG IV SCH ×2 (06:58→08:04)
[2017-07-07] MEDS: CHLORHEXIDINE GLUCONATE 15 ML UDC PO SCH ×2 (08:04→10:35)
[2017-07-07] MEDS ORDERED: ENOXAPARIN 40 MG/0.4 ML SYRINGE SUBQ SCH (09:00)
[2017-07-07] MEDS ORDERED: POLYETHYLENE GLYCOL 3350 17 GM PACKET PO SCH (09:00)
--- NOTE | 2017-07-07 09:10 | CT Preliminary Report ---
Exam: CT Head W/O IMPRESSION: No significant change from prior. Lesions worrisome for right cerebral and right cerebell ar metastases are again demonstrated. No midline shift or evidence of acute intracranial hemorrhage. Enlargement of the lateral and third ventricles is similar to prior and likely has a component of age -related atrophy, a component of obstructive hydrocephalus secondary to the posterior fossa masses is not excluded. [facility] SITE ID: [id number]
--- NOTE | 2017-07-07 09:13 | CT Report ---
EXAM: CT HEAD EXAM DATE: 07/07/2017 08:45 AM. CLINICAL HISTORY: worsening altered mental status. COMPARISON: 07/06/2017 at 1044 hrs. TECHNIQUE: Multiaxial CT images were obtained from the foramen magnum to the vertex. IV contrast: Non e. Reformats: Coronal. In accordance with CT protocol optimization, one or more of the following dose reduction techniques w ere utilized for this exam: automated exposure control, adjustment of mA and/or KV based on patient s ize, or use of iterative reconstructive technique. FINDINGS: Parenchyma: No midline shift. Mass centered in the medial right temporal lobe has not significantly c hanged from prior, measuring 2.8 x 2.9 x 2.4 cm. There is edema in the right posterior temporal and m edial occipital lobes as before. Additional 4.2 cm and 1.9 cm lesions are seen in the right cerebella r hemisphere, also similar to prior. No acute intracranial hemorrhage or new intracranial abnormality . Extraaxial Spaces: No subdural or epidural collections identified. Ventricles: There is focal effacement of the fourth ventricle. Otherwise, the ventricles and cortical sulci are enlarged, as before. Sinuses: Imaged paranasal sinuses, orbits, and mastoids show no significant abnormality. Bones: No evidence of fracture or calvarial defect. Other: Diffuse chronic microangiopathic white matter changes are evident. IMPRESSION: No significant change from prior. Lesions worrisome for right cerebral and right cerebell ar metastases are again demonstrated. No midline shift or evidence of acute intracranial hemorrhage. Enlargement of the lateral and third ventricles is similar to prior and likely has a component of age -related atrophy, a component of obstructive hydrocephalus secondary to the posterior fossa masses is not excluded. [facility] Referring Provider Line: [phone] SITE ID: [id number]
[2017-07-07] MEDS: SODIUM CHLORIDE 0.9% 1,000 ML IV SCH (10:34)
[2017-07-07 14:02] VITALS: BP 83/59
[2017-07-07] MEDS ORDERED: ONDANSETRON 4 MG/2 ML VIAL IVP PRN (14:27)
[2017-07-07] MEDS ORDERED: CARBOXYMETHYLCELLULOSE OPHTH DROPS EACHEYE PRN (14:27)
[2017-07-07] MEDS ORDERED: ATROPINE 1% OPHTH DROPS 2 ML SL PRN (14:27)
[2017-07-07] MEDS ORDERED: LORazepam 2 MG/ML SYRINGE IVP PRN (14:27)
[2017-07-07] MEDS: MORPHINE 2 MG/ML SYRINGE IVP PRN ×4 (14:37→14:53)
--- NOTE | 2017-07-07 15:30 | ADVANCE CARE PLANNING NOTE ---
Advance Care Planning - Date/Time Date: 07/07/17 Time: 12:30 - Purpose of encounter Text: Establish goals of care - Parties in attendance Parties in attendance: Dony Uribe MD, Susana Abarca (Daughter), Ivon (daughter and DPOA), Bronwyn Aranda (In a Coma) - Decisional capacity Decisional capacity of: Patient comatosed so decisions were left to her daughter Ivon who is DPOA - Subjective/Patient's story Subjective/Patient's story: Patient presented to the ER after a fall with trauma to her face and right arm. On presentation she was lethargic, vomiting and hypoxic. She was admitted to the ICU with respiratory failure with hypoxia and she was in a coma at the time of admission. According to the daughter the patient had been having memory issues for the last few weeks and had also recently been diagnosed with a UTI. She had also been getting weaker and weaker. The patients radiology testing revealed that she has a metastatic cancer with metastasis to the brain, bones and lungs. - Objective/Medical story Objective/Medical Story: Patient presented to the ER after a fall with trauma to her face and right arm. On presentation she was lethargic, vomiting and hypoxic. She was admitted to the ICU with respiratory failure with hypoxia and she was in a coma at the time of admission. According to the daughter the patient had been having memory issues for the last few weeks and had also recently been diagnosed with a UTI. She had also been getting weaker and weaker. The patients radiology testing revealed that she has a metastatic cancer with metastasis to the brain, bones and lungs. - Goals of Care Goals of care determinations: Patients daughters both agreed that there mother does not want to be kept alive by heroic measures and that she would not want to live in a vegatative state. They did not want their mother to suffer and knowing that she has metastatic cancer they know their mother would not want to be kept alive to suffer. - Plan Plan: Patients daughter decided to make her DNR/DNI and did not want treatment with pressors. After they saw that patient had multiorgan failure and that her prognosis is very poor not only due to her current condition but also in the future given her metastatic cancer. The family decided that what the patient would want in this situation is comfort care. The family decided to withdraw care. - Code Status Code Status: Do Not Attempt Resuscitation - Time Spent on Advance Care Planning Time spent on advance care plannin Minutes
--- NOTE | 2017-07-07 15:43 | Discharge Plan ---
Discharge Plan Disposition: 20 Condition: Critical No Smoking: If you smoke, Please STOP! Call for help.
--- NOTE | 2017-07-07 15:46 | DISCHARGE SUMMARY ---
Discharge Summary Admit Date: 07/06/17 Discharge Date: 07/07/17 Discharging Provider: Dony Uribe MD Primary Care Provider: Junior Greene MD Code Status: Do Not Attempt Resuscitation Condition at Discharge: Critical Discharge Disposition: 20 - DIAGNOSES Admission Diagnoses: 1. Acute respiratory failure with hypoxia 2. Acute encephalopathy 3. Aspiration pneumonia 4. COPD exacerbation 5. Acute kidney injury 6. Hypokalemia 7. Hypercalcemia 8. Abnormal LFTs 9. Humerus fracture 10. Metastatic cancer 11. Hypotension Discharge Diagnoses with Status of Each Condition: 1. Cardiopulmonary arrest: 2. Sepsis with multiorgan dysfunction: 3. Acute respiratory failure with hypoxia: 4. Aspiration pneumonia: 5. COPD exacerbation: 6. Metastatic cancer: 7. Acute renal failure: 8. Comatose: 9. Humerus fracture: 10. Hypotension: - HPI History of Present Illness: Patient is an 82-year-old female with a past medical history significant for COPD on home oxygen, hypertension, hyperlipidemia, osteoarthritis and diabetes diet controlled who presented to the emergency department with altered mental status. Patient is unable to provide any history secondary to being unresponsive. The history was provided by the patient's daughter. The patient' s daughter states that the patient over the last several weeks has been having increased forgetfulness and cognitive decline. She states that the patient had an appointment with her primary care physician 1 week ago during which she had a steroid injection of her knee but the nurses there found her to be confused and not her normal self therefore they had requested that the patient go to the emergency department. The patient however refused and they had to call the patient's daughter who came to the doctor's office but could not convince the patient to come in to the hospital. The patient's daughter states that the patient has been forgetting went to take her pills she has been sleeping during the day and then getting up and thinking it is the next day. The patient went to a doctor's appointment earlier this week for another knee injection and after getting the knee injection she returned in the afternoon thinking that she had not gone to the appointment. The patient's daughter states that the patient was diagnosed with a urinary tract infection last week and started on antibiotics and she thought that maybe her mom's for forgetfulness was secondary to this infection. The daughter has also noted that the patient has become increasingly weak. She states that her mom uses a walker at home but recently has barely been able to stand up and move with her walker. The daughter states that she did see her mother last night and at that time again she noted that she was very forgetful she had not taken her pills correctly and she talked to her mom about the need for increased care. The patient was brought into the emergency department today when she was found on her floor at her cottage at [facility] in [place]. The patient was found on the floor with bruises over her face, deformity of her right arm and scrapes and bruises over her knees and her feet. It appeared that the patient had tried to crawl and get up after having suffered a fall but was unable to. When EMS arrived the patient was very weak and they could not get her up. In route to the emergency department the patient had several episodes of emesis. The patient was in and out of consciousness during her stay in the emergency department and at times did respond to questions however by the time I went to admit the patient the patient was completely unresponsive and barely responsive to tactile stimuli. I was unable to obtain any review of system from the patient. On presentation to the emergency department the patient was vomiting and very lethargic. It appeared that she was not protecting her airway and may have aspirated at that time. The patient's vital signs on presentation showed that she was tachypneic and very hypoxic on room air saturating at only 74%. The patient was tachycardic but was afebrile. The patient's lab work revealed a leukocytosis of 15.5 and she appeared to be significantly dehydrated as her creatinine was elevated at 1.6 her potassium was low at 3.0 and her calcium was elevated at 11.5. The patient's initial troponin was 0.06 subsequent troponins were 0.08 and 0.09. The patient's EKG initially was concerning however when an EKG was obtained from her primary care physician's office it appeared to be unchanged from previous. The patient's lactate was 1.3. The patient's UA was negative for infection. The patient's chest x-ray did reveal an opacity in the right inferior hemothorax which was concerning for possible neoplasm with infection felt to be less likely. An x-ray of the patient's right arm revealed a displaced humeral shaft fracture which was likely pathological. The patient was also found to have an aggressive lesion in the scapula that appeared to be a osseous metastasis. A CT of the patient's cervical spine revealed multiple lytic bony destructive lesions in the cervical spine concerning for metastatic disease. CT of the patient's head revealed a lobulated cystic appearing lesion in the right hippocampus and T2 hypodense ill-defined lesion in the right cerebellum that were also concerning for metastatic disease. The patient had some bruising over the left eye and facial area she underwent a CT of her maxillofacial area which showed multiple lytic lesions in the C2 and C3 vertebral bodies mottled appearance and cortical disruption of the C3 spinous process which were also concerning for metastatic disease. She did not have any facial bone fracture or facial bone lesions. During her stay in the emergency department the patient had a drop in her blood pressure down to 60 systolic and became increasingly hypoxic requiring a nonrebreather at 100%. The patient was admitted to the intensive care unit with acute respiratory failure secondary to hypoxia and acute encephalopathy. - HOSPITAL COURSE Hospital Course: Over the course of her hospitalization the patient had deterioration in her status. The patient developed sepsis with multiorgan dysfunction. The patient remained comatose throughout the hospitalization and did not show any signs of improvement. CT head revealed metastatic cancer but there was no hemorrhage or mass-effect. The patient remained on a nonrebreather mask as the family did not want intubation. The patient continued to have respiratory failure which was not improving despite treatment with antibiotics, nebulizers and steroids. The patient's oxygen saturation would drop with any change in her oxygen flow. The patient remained hypotensive despite several IV boluses and the family did not want pressors. The patient had minimal urine output and her creatinine was worsening through the hospitalization. After a long discussion with the patient 's daughter Ivon who would come from [place] and was the DURABLE POWER OF SENIOR UI DESIGNER the decision was made to withdraw care from the patient given her new diagnosis of metastatic cancer with her current critical condition it was felt that even if the patient did survive this hospitalization that her quality of life would be very poor and that is not the way the patient would want to live. The patient was made comfort care and of a cardiopulmonary arrest at 1450 on 07/07/2017. The patient's family was informed and the remains were released to the [facility]. - ALLERGIES Allergies/Adverse Reactions: Allergies Allergy/AdvReac Type Severity Reaction Status Date / Time No Known Drug Allergies Allergy Verified 03/24/14 11:08 - MEDICATIONS Home Medications: Ambulatory Orders Medication Instructions Recorded Confirmed Naproxen 500 mg PO BID PRN 03/24/14 07/06/17 Losartan/Hydrochlorothiazide 1 tab PO DAILY 10/28/16 07/06/17 [Losartan-Hctz 100-25 mg Tab] Multivitamin [Multivitamins] 1 tab PO DAILY 10/28/16 07/06/17 Simvastatin 20 mg PO DAILY 10/28/16 07/06/17 Acetaminophen with Codeine 1 each PO Q6H PRN 07/06/17 07/06/17 [Acetaminophen-Cod #3 Tablet] Meloxicam [Meloxicam] 15 mg PO DAILY 07/06/17 07/06/17 Nitrofurantoin [Macrobid] 100 mg PO BID 07/06/17 07/06/17 - PHYSICAL EXAM AT DISCHARGE Physical Exam Other/Comments: Patient's pupils were nonreactive to light, she had an absent corneal reflex. Patient had no carotid or radial pulse palpable. Patient had absent breath and heart sounds. Patient's extremities were cool to touch. She was pronounced at 1450. - LABS Result Diagrams: 07/07/17 04:45 07/07/17 04:45 Other Lab Results: Laboratory Results WBC 24.3 x10^3/uL (4.8-10.8) H 07/07/17 04:45 RBC 3.63 10^6/uL (4.20-5.40) L 07/07/17 04:45 Hgb 10.7 g/dL (12.0-16.0) L 07/07/17 04:45 Hct 33.9 % (37.0-47.0) L 07/07/17 04:45 MCV 93.5 fL (81.0-99.0) 07/07/17 04:45 MCH 29.5 pg (27.0-31.0) 07/07/17 04:45 MCHC 31.5 g/dL (32.0-36.0) L 07/07/17 04:45 RDW 14.1 % (12.0-15.0) 07/07/17 04:45 Plt Count 246 10^3/uL (130-450) 07/07/17 04:45 MPV 8.4 fL (7.9-10.8) 07/07/17 04:45 Neut # Not Reportable 07/07/17 04:45 Lymph # Not Reportable 07/07/17 04:45 [place] # Not Reportable 07/07/17 04:45 Eos # Not Reportable 07/07/17 04:45 Baso # Not Reportable 07/07/17 04:45 Absolute Nucleated RBC Not Reportable 07/07/17 04:45 Total Counted 100 07/07/17 04:45 Band Neuts % (Manual) 8 % (0-10) 07/07/17 04:45 Nucleated RBC % Not Reportable 07/07/17 04:45 Neutrophils # (Manual) 21.4 10^3/uL (1.5-6.6) H 07/07/17 04:45 Lymphocytes # (Manual) 1.9 10^3/uL (1.5-3.5) 07/07/17 04:45 Monocytes # (Manual) 1.0 10^3/uL (0.0-1.0) 07/07/17 04:45 Differential Comment MANUAL DIFFERENTIAL 07/07/17 04:45 Manual Slide Review Indicated 07/06/17 10:35 Platelet Estimate NORMAL (130-450,000) (NORMAL) 07/07/17 04:45 Platelet Morphology NORMAL APPEARANCE (NORMAL) 07/06/17 10:35 RBC Morph Micro Appear n (NORMAL) 07/07/17 04:45 ESR 23 mm/Hr (0-30) 07/07/17 04:45 PT 12.7 secs (9.9-12.6) H 07/06/17 10:35 INR 1.1 (0.8-1.2) 07/06/17 10:35 APTT 14.2 secs (24.9-33.3) L 07/06/17 10:35 Sodium 141 mmol/L (135-145) 07/07/17 04:45 Potassium 5.3 mmol/L (3.5-5.0) H 07/07/17 04:45 Chloride 102 mmol/L (101-111) 07/07/17 04:45 Carbon Dioxide 30 mmol/L (21-32) 07/07/17 04:45 Anion Gap 9.0 (6-13) 07/07/17 04:45 BUN 47 mg/dL (6-20) H 07/07/17 04:45 Creatinine 2.4 mg/dL (0.4-1.0) H 07/07/17 04:45 Estimated GFR (MDRD) 19 (>89) L 07/07/17 04:45 Glucose 191 mg/dL (70-100) H 07/07/17 04:45 Lactic Acid 1.3 mmol/L (0.5-2.2) 07/07/17 04:45 Calcium 9.4 mg/dL (8.5-10.3) 07/07/17 04:45 Ionized Calcium NO 07/07/17 04:45 Phosphorus 9.4 mg/dL (2.5-4.6) H 07/07/17 04:45 Magnesium 1.3 mg/dL (1.7-2.8) L 07/07/17 04:45 Total Bilirubin 0.5 mg/dL (0.2-1.0) 07/07/17 04:45 AST 46 IU/L (10-42) H 07/07/17 04:45 ALT 25 IU/L (10-60) 07/07/17 04:45 Alkaline Phosphatase 131 IU/L (42-121) H 07/07/17 04:45 Total Creatine Kinase 752 IU/L (22-269) H 07/06/17 10:35 CK-MB (CK-2) 75.3 ng/mL (0.6-6.3) H 07/06/17 10:35 Troponin I 0.09 ng/mL (<0.49) 07/06/17 17:30 C-Reactive Protein 4.7 mg/dL (0-1.0) H 07/07/17 04:45 Total Protein 6.3 g/dL (6.7-8.2) L 07/07/17 04:45 Albumin 3.4 g/dL (3.2-5.5) 07/07/17 04:45 Globulin 2.9 g/dL (2.1-4.2) 07/07/17 04:45 Albumin/Globulin Ratio 1.2 (1.0-2.2) 07/07/17 04:45 Lipase 34 U/L (22-51) 07/06/17 10:35 PTH Intact 99 pg/mL (12-88) H 07/07/17 04:45 Urine Color DARK YELLOW 07/06/17 12:00 Urine Clarity CLEAR (CLEAR) 07/06/17 12:00 Urine pH 5.5 PH (5.0-7.5) 07/06/17 12:00 Ur Specific [place] >=1.030 (1.002-1.030) H 07/06/17 12:00 Urine Protein NEGATIVE mg/dL (NEGATIVE) 07/06/17 12:00 Urine Glucose (UA) NEGATIVE mg/dL (NEGATIVE) 07/06/17 12:00 Urine Ketones TRACE mg/dL (NEGATIVE) 07/06/17 12:00 Urine Occult Blood TRACE-LYSE (NEGATIVE) 07/06/17 12:00 Urine Nitrite NEGATIVE (NEGATIVE) 07/06/17 12:00 Urine Bilirubin NEGATIVE (NEGATIVE) 07/06/17 12:00 Urine Urobilinogen 0.2 (NORMAL) E.U./dL (NORMAL) 07/06/17 12:00 Ur Leukocyte Esterase NEGATIVE (NEGATIVE) 07/06/17 12:00 Ur Microscopic Review NOT INDICATED 07/06/17 12:00 Urine Culture Comments NOT INDICATED 07/06/17 12:00 - DIAGNOSTIC IMAGING Diagnostic Imaging Results: Final report reviewed Diagnostic Imaging Results Comments: CT cervical spine Impression: 1. No cervical spinal fracture or listhesis 2. Multiple lytic and bony destructive lesions in the cervical spine most significant at C7 and T1. No pathologic fracture of cervical spine. There is lytic destruction of the medial aspect of the left clavicle with pathological fracture and anterior displacement of the lateral fracture fragment by one shaft width. Infiltrative soft tissue mass in the T1 vertebral body extends into the neural foramina bilaterally and spinal canal posteriorly. A cervical' s spine MRI may be of clinical benefit to further characterize this finding. Findings are concerning for metastatic disease. 3. Please see separate head CT report from today for additional findings in the brain. Chest x-ray Impression: Opacity in the right inferior hemithorax may be pleural or pulmonary based. The appearance is atypical for an acute injury such as hemothorax/contusion however acute injury is not excluded. Differential includes neoplasm with infection felt to be less likely. Consider CT for further evaluation if clinically indicated. CT head Impression: 1. No intracranial hemorrhage or midline shift. 2. There is a lobulated cystic-appearing lesion in the right hippocampus and T2 hypodense ill-defined lesion in the right cerebellum, as described above. These are incompletely assessed on this examination and a brain MRI with and without contrast should be considered for further evaluation. Metastatic disease cannot be excluded X-ray right humerus Impression: 1. Displaced humeral shaft fracture, likely a pathologic fracture. 2. There is an apparent aggressive lesion in the scapula. Constellation of findings suggests osseous metastasis Knee x-ray Impression: No acute osseous abnormality in the bilateral knees Pelvic x-ray Impression: No acute osseous abnormality Facial bone x-ray Impression: 1. Multiple lytic lesions in the C2 and C3 vertebral bodies with mottled appearance and cortical disruption of the C3 spinous process are concerning for metastatic disease. 2. No facial bone fracture or facial bone lesion identified. 3. Please see separate head CT report for intracranial findings. Chest x-ray Impression: Interval placement of left subclavian central line extending to the right atrium , with no pneumothorax or other interval change CT head Impression: No significant change from prior. Lesion worrisome for right cerebral and right cerebellar metastasis are again demonstrated. No midline shift or evidence for acute intracranial hemorrhage. Enlargement of the lateral and third ventricles is similar to prior and likely has a component of age related atrophy, a component of obstructive hydrocephalus secondary to posterior fossa masses is not excluded. - FOLLOW UP Follow Up: Patient's remains were released - TIME SPENT Time Spent in Discharge (Minutes): 55 (Fax to PCP)
== END 2017-07-07 14:50 | disposition expired | DRG 189 ==
LOC: EDUNIT# → ED 09:30 → ICU 14:38
PROVIDERS: ADMIT Nurse Practitioner; ATTEND Internal Medicine
PROC: 02HV33Z Insertion of Infusion Device into Superior Vena Cava, Percutaneous Approach (ICD-10-PCS; principal; 2017-07-06)
DX: N28.9 Disorder of kidney and ureter, unspecified (principal); R09.02 Hypoxemia; R94.31 Abnormal electrocardiogram [ECG] [EKG]; J96.01 Acute respiratory failure with hypoxia; S00.531A Contusion of lip, initial encounter; S00.33XA Contusion of nose, initial encounter; G93.40 Encephalopathy, unspecified; J69.0 Pneumonitis due to inhalation of food and vomit; S91.202A Unspecified open wound of left great toe with damage to nail, initial encounter; A41.9 Sepsis, unspecified organism; R65.20 Severe sepsis without septic shock; K92.0 Hematemesis; J44.1 Chronic obstructive pulmonary disease with (acute) exacerbation; I95.2 Hypotension due to drugs; T42.4X5A Adverse effect of benzodiazepines, initial encounter; Y92.238 Other place in hospital as the place of occurrence of the external cause; N17.9 Acute kidney failure, unspecified; J44.9 Chronic obstructive pulmonary disease, unspecified; I11.9 Hypertensive heart disease without heart failure; M84.421A Pathological fracture, right humerus, initial encounter for fracture; M17.0 Bilateral primary osteoarthritis of knee; C79.31 Secondary malignant neoplasm of brain; Z87.11 Personal history of peptic ulcer disease; C79.51 Secondary malignant neoplasm of bone; C78.01 Secondary malignant neoplasm of right lung; C78.02 Secondary malignant neoplasm of left lung; I46.9 Cardiac arrest, cause unspecified; E87.6 Hypokalemia; E83.52 Hypercalcemia; C80.0 Disseminated malignant neoplasm, unspecified; I95.9 Hypotension, unspecified; E86.0 Dehydration; S90.31XA Contusion of right foot, initial encounter; S90.32XA Contusion of left foot, initial encounter; S80.01XA Contusion of right knee, initial encounter; S80.02XA Contusion of left knee, initial encounter; S00.83XA Contusion of other part of head, initial encounter; S00.12XA Contusion of left eyelid and periocular area, initial encounter; W19.XXXA Unspecified fall, initial encounter; Y92.039 Unspecified place in apartment as the place of occurrence of the external cause; C80.1 Malignant (primary) neoplasm, unspecified; I10 Essential (primary) hypertension; E78.5 Hyperlipidemia, unspecified; E11.9 Type 2 diabetes mellitus without complications; K21.9 Gastro-esophageal reflux disease without esophagitis; M19.90 Unspecified osteoarthritis, unspecified site; Z66 Do not resuscitate; Z87.891 Personal history of nicotine dependence; Z87.440 Personal history of urinary (tract) infections; Z79.1 Long term (current) use of non-steroidal anti-inflammatories (NSAID); Z99.81 Dependence on supplemental oxygen
CPT/HCPCS: 36415; 51702; 70450; 70486; 71010; 72125; 72170; 73565; 80053; 81001; 81003; 82550; 82553; 83605; 83690; 83735; 83970; 84100; 84484; 85025; 85610; 85651; 85730; 86140; 87086; 87150; 90471; 93005; 93306; 94640; 96365; 96375; 96376; 99284; 99285